=== PATIENT | female | born 1955 | race Caucasian/White ===

== ENCOUNTER 2016-07-12 18:40 | Emergency (ER) | payer OTHER ==
[~2016-07-12] VITALS: Ht 162.6 cm; Wt 95.3 kg
[~2016-07-12 18:40] MED LIST: ASPIR 8181 MG PO; CYMBALTA 30 MG30 MG PO; CYMBALTA60 MG PO; EPIPEN 2-PAK1 MG/ML IM; FUROSEMIDE40 MG PO; GEMFIBROZIL600 MG PO; GLIMEPIRIDE4 MG PO; HYDROCODONE/ACE1 TA1 PO; HYDROXYZINE50 MG PO; LOSARTAN POTASS50 MG PO; LYRICA150 MG PO; METFORMIN1000 MG PO; NOVAPLUS V0.09 MG/Ac INH; PERCOCET 5-3251 EACH PO; PREDNISONE50 MG PO; SIMVASTATIN20 MG PO; TESSALON PERLE100 MG PO; VICTOZA6 MG/ML SC; ZITHROMAX Z-PA250 M1 PO
--- NOTE | 2016-07-12 20:00 | ED SKIN/ALLERGY COMPLAINT ---
History of Present Illness General Chief Complaint: Laceration Procedure Stated Complaint: LEFT THUMB LAC Source: patient Exam Limitations: no limitations Allergies Coded Allergies: lisinopril (ANAPHYLAXIS 07/12/16) Reconcile Medications Amlodipine Besylate 10 MG TABLET 1 TAB PO DAILY BP (Reported) Ascorbic Acid (Vitamin C) (Unknown Strength) TABLET (Unknown Dose) PO DAILY SUPPLEMENT (Reported) Aspirin (Ecotrin*) 81 MG TABLET.DR 1 TAB PO DAILY HEART/BLOOD (Reported) Cholecalciferol (Vitamin D3) (Vitamin D) (Unknown Strength) TABLET (Unknown Dose) PO DAILY SUPPLEMENT (Reported) Difluprednate (Durezol) 0.05 % DROPS 1 GTT OS DAILY LEFT EYE (Reported) Duloxetine HCl 60 MG CAPSULE.DR 1 CAP PO [facility] MENTAL HEALTH (Reported) Duloxetine HCl 30 MG CAPSULE.DR 1 CAP PO [facility] MENTAL HEALTH (Reported) Fenofibric Acid (Trilipix) 135 MG CAPSULE.DR 1 CAP PO DAILY TRIGLYCERIDES/ CHOLESTEROL (Reported) Hydrochlorothiazide 25 MG TABLET 1 TAB PO DAILY BP (Reported) Insulin Aspart, Recombinant (Novolog Flexpen) 100 UNIT/ML INSULN.PEN DM ( Reported) Insulin Detemir (Levemir) 100 UNIT/ML VIAL 50-60 UNITS SC QPM DM (Reported) Losartan Potassium 100 MG TABLET 1 TAB PO DAILY BP (Reported) Metformin HCl 500 MG TABLET 1 TAB PO BID DM (Reported) Multivit/Iron/FA/K/Herb No.244 (Alive Women's Energy Mv Tablet) 18 MG IRON-400 MCG-80 MCG TABLET 2 TAB PO DAILY SUPPLEMENT (Reported) Nepafenac (Ilevro) 0.3 % DROPS.SUSP 1 DROP OS BID LEFT EYE (Reported) [place]-3 Acid Ethyl Esters 1 GRAM CAPSULE 2 CAP PO BID CHOLESTEROL (Reported) Polymyxin B Sulf/Trimethoprim (Polymyxin B-Tmp Eye Drops) 10,000 UNIT-1 MG/ML DROPS 1 GTT OS BID LEFT EYE (Reported) Pregabalin (Lyrica) 150 MG CAPSULE 1 CAP PO BID NERVE PAIN (Reported) Rosuvastatin Calcium (Crestor) 10 MG TABLET 1 TAB PO DAILY CHOLESTEROL ( Reported) Triage Note: LACERATION LEFT INNER THUMB UNK LAST TETNUS Triage Nurses Notes Reviewed? yes HPI: This patient is a 60-year-old female who presented to the emergency department with her son for evaluation of a laceration to her left thumb. The patient reported that she was trying to cut a daughter squash and the knife slipped. She reported that she is having 7 out of 10 pain in her thumb. She denied any decreased movement in her thumb. She reported some tingling, but no numbness. The patient denied any fevers, chills, or any other associated symptoms. She is unsure of her last tetanus immunization (LEO KEATING PA-C) Vital Signs & Intake/Output Vital Signs & Intake/Output Vital Signs Date Time Temp Pulse Resp B/P Pulse O2 O2 Flow FiO2 Ox Delivery Rate 07/13 2047 96.8 80 18 140/85 97 Room Air 07/12 2019 100 Room Air 07/12 1852 97.0 78 20 140/84 97 Room Air ED Intake and Output 07/13 0000 07/12 1200 Intake Total Output Total Balance Patient 210 lb Weight Past History Travel History Traveled to [place] past 21 day No Medical History Any Pertinent Medical History? see below for history Neurological: peripheral neuropathy EENT: NONE Cardiovascular: hypertension Respiratory: NONE Gastrointestinal: NONE Hepatic: NONE Renal: NONE Musculoskeletal: NONE Psychiatric: depression Endocrine: diabetes Surgical History Surgical History: non-contributory, N Psychosocial History Who do you live with Patient/Self Services at Home None What is your primary language Gambian Family History Hx Contributory? No (LEO KEATING PA-C) Review of Systems Review of Systems Constitutional: Reports: no symptoms. EENTM: Reports: no symptoms. Respiratory: Reports: no symptoms. Cardiovascular: Reports: no symptoms. GI: Reports: no symptoms. Musculoskeletal: Reports: no symptoms. Skin: Reports: see HPI. Neurological/Psychological: Reports: see HPI. All Other Systems: Reviewed and Negative (LEO KEATING PA-C) Physical Exam Physical Exam General Appearance: well developed/nourished, no apparent distress, alert, awake Comments: Well-developed well-nourished person in no acute distress HEENT: Head normocephalic, moist mucous membranes Neck: Supple, no lymphadenopathy Back: Normal gait Respiratory: No respiratory distress. Speaking in full sentences Extremities: No edema, full range of motion Neuro: Alert and oriented x3 Psych: Mood affect normal, normal memory normal judgment. Skin: Warm and dry, no rash on exposed skin. Approximately 1.5 cm in length, linear, subcutaneous laceration to the palmar aspect of the left first digit with no active bleeding, surrounding erythema or edema, and nontender to palpation. No purulent drainage from the wound site. No tendon involvement or injury. No foreign body in the wound. (LEO KEATING PA-C) Progress Differential Diagnosis: abscess/cellulitis, skin laceration, skin tear, skin abrasion, skin avulsion Plan of Care: PATIENT IS A 60 YEAR OLD FEMALE WHO PRESENTED FOR A LEFT THUMB LACERATION. WOUND REPAIRED WITH 4, 4-0 SUTURES. TETANUS IMMUNIZATION ADMINISTERED. STABLE FOR DISCHARGE. (LEO KEATING PA-C) Departure Departure Disposition: HOME OR SELF CARE Condition: Stable Clinical Impression Primary Impression: Laceration Referrals: FERNANDA IBARRA (PCP/Family) Additional Instructions: Keep the wound site clean and dry. Use the splint provided to here in the emergency department to prevent any bending of your thumb which could hold sutures. You may apply bacitracin to the wound once a day. Please return to the emergency department in 7-10 days for wound check and suture removal. Return sooner for any worsening symptoms, spreading redness around the wound site, pus drainage from the wound site, or for any other concerns. Departure Forms: Customer Survey General Discharge Information (LEO KEATING PA-C) PA/AGING DEPARTMENT SUPERVISOR Co-Sign Statement Statement: ED Attending supervision documentation- [X] I saw and evaluated the patient. I have also reviewed all the pertinent lab results and diagnostic results. I agree with the findings and the plan of care as documented in the PA's/AGING DEPARTMENT SUPERVISOR's documentation. [X] I have reviewed the ED Record and agree with the PA's/AGING DEPARTMENT SUPERVISOR's documentation. [] Additions or exceptions (if any) to the PAs/AGING DEPARTMENT SUPERVISOR's note and plan are summarized below: [] (WANDA GODOY,VENKAT Sanchez) Procedures Laceration/Wound Repair Laceration/Wound Repair: Wound Location: upper extremity (left thumb) Wound's Depth, Shape: linear, subcutaneous Wound Length (cm): 1.5 Wound Explored: irrigated extensively Irrigated w/ Saline (ccs): 500 Betadine Prep? Yes Anesthesia: 1% lidocaine Volume Anesthetic (ccs): 2 Wound Repaired With: sutures Suture Size/Type: 4:0 Number of Sutures: 4 Layer Closure? No Sterile Dressing Applied: Yes Splint Applied? Yes By Who? by me Type of Splint Applied: thumb splint Sling Applied? No Tetanus Status: not up to date Progress: [employer] student assisting in the closure of this laceration. Patient tolerated procedure well. (ZURI LAMBERT,LEO)
[2016-07-12] MEDS ORDERED: OMEGA-3 ACID ETH1 GM PO (20:02)
[2016-07-12] MEDS ORDERED: DUREZOL5 ML OS (20:04)
[2016-07-12] MEDS ORDERED: ILEVRO1.7 ML OS (20:04)
[2016-07-12] MEDS ORDERED: POLYMYXIN B-TMP10 ML OS (20:05)
[2016-07-12] MEDS ORDERED: DULOXETINE HCL60 MG PO (20:06)
[2016-07-12] MEDS ORDERED: ASPIRIN EC81 M1 PO (20:06)
[2016-07-12] MEDS ORDERED: DULOXETINE HCL30 MG PO (20:07)
[2016-07-12] MEDS ORDERED: CRESTOR10 M1 PO (20:07)
[2016-07-12] MEDS ORDERED: TRILIPIX135 M1 PO (20:07)
[2016-07-12] MEDS ORDERED: AMLODIPINE BESY10 M1 PO (20:08)
[2016-07-12] MEDS ORDERED: METFORMIN HCL500 M3 PO (20:08)
[2016-07-12] MEDS ORDERED: LOSARTAN POTAS100 M1 PO (20:09)
[2016-07-12] MEDS ORDERED: HYDROCHLOROTHIA25 M1 PO (20:09)
[2016-07-12] MEDS ORDERED: LYRICA150 M1 PO (20:09)
[2016-07-12] MEDS ORDERED: LEVEMIR100 UNIT/1 SC (20:10)
[2016-07-12] MEDS ORDERED: NOVOLOG FL100 UNIT/1 SC (20:10)
[2016-07-12] MEDS ORDERED: ALIVE WOMEN'S1 EAC1 PO (20:12)
[2016-07-12] MEDS ORDERED: VITAMIN D2000 UNI1 PO (20:13)
[2016-07-12] MEDS ORDERED: VITAMIN C500 M8 PO (20:13)
[2016-07-12 20:48] VITALS: BP 140/85
== END 2016-07-12 20:49 ==
LOC: ERH 18:40
DX: S61.012A Laceration without foreign body of left thumb without damage to nail, initial encounter (principal); W26.0XXA Contact with knife, initial encounter; Y93.G1 Activity, food preparation and clean up; Y92.9 Unspecified place or not applicable
CPT/HCPCS: 90471; 90714

== ENCOUNTER 2016-07-21 09:44 | Emergency (ER) | payer OTHER ==
[~2016-07-21] VITALS: Ht 160 cm; Wt 104.3 kg
[~2016-07-21 09:44] MED LIST changes: +ALIVE WOMEN'S1 EAC1 PO; +AMLODIPINE BESY10 M1 PO; +ASPIRIN EC81 M1 PO; +CRESTOR10 M1 PO; +DULOXETINE HCL30 MG PO; +DULOXETINE HCL60 MG PO; +DUREZOL5 ML OS; +HYDROCHLOROTHIA25 M1 PO; +ILEVRO1.7 ML OS; +LEVEMIR100 UNIT/1 SC; +LOSARTAN POTAS100 M1 PO; +LYRICA150 M1 PO; +METFORMIN HCL500 M3 PO; +NOVOLOG FL100 UNIT/1 SC; +OMEGA-3 ACID ETH1 GM PO; +POLYMYXIN B-TMP10 ML OS; +TRILIPIX135 M1 PO; +VITAMIN C500 M8 PO; +VITAMIN D2000 UNI1 PO
[2016-07-21 09:48] VITALS: BP 162/80
--- NOTE | 2016-07-21 10:01 | ED GENERAL ADULT ---
History of Present Illness General Chief Complaint: General Adult Stated Complaint: SUTURE REMOVAL Source: patient, family Exam Limitations: no limitations Vital Signs & Intake/Output Vital Signs & Intake/Output Vital Signs Date Time Temp Pulse Resp B/P Pulse O2 O2 Flow FiO2 Ox Delivery Rate 07/21 0948 96.2 81 18 162/80 98 Room Air Allergies Coded Allergies: lisinopril (ANAPHYLAXIS 07/12/16) Reconcile Medications Amlodipine Besylate 10 MG TABLET 1 TAB PO DAILY BP (Reported) Ascorbic Acid (Vitamin C) (Unknown Strength) TABLET (Unknown Dose) PO DAILY SUPPLEMENT (Reported) Aspirin (Ecotrin*) 81 MG TABLET.DR 1 TAB PO DAILY HEART/BLOOD (Reported) Cholecalciferol (Vitamin D3) (Vitamin D) (Unknown Strength) TABLET (Unknown Dose) PO DAILY SUPPLEMENT (Reported) Difluprednate (Durezol) 0.05 % DROPS 1 GTT OS DAILY LEFT EYE (Reported) Duloxetine HCl 60 MG CAPSULE.DR 1 CAP PO [facility] MENTAL HEALTH (Reported) Duloxetine HCl 30 MG CAPSULE.DR 1 CAP PO [facility] MENTAL HE[facility] (Reported) Fenofibric Acid (Trilipix) 135 MG CAPSULE.DR 1 CAP PO DAILY TRIGLYCERIDES/ CHOLESTEROL (Reported) Hydrochlorothiazide 25 MG TABLET 1 TAB PO DAILY BP (Reported) Insulin Aspart, Recombinant (Novolog Flexpen) 100 UNIT/ML INSULN.PEN DM ( Reported) Insulin Detemir (Levemir) 100 UNIT/ML VIAL 50-60 UNITS SC QPM DM (Reported) Losartan Potassium 100 MG TABLET 1 TAB PO DAILY BP (Reported) Metformin HCl 500 MG TABLET 1 TAB PO BID DM (Reported) Multivit/Iron/FA/K/Herb No.244 (Alive Women's Energy Mv Tablet) 18 MG IRON-400 MCG-80 MCG TABLET 2 TAB PO DAILY SUPPLEMENT (Reported) Nepafenac (Ilevro) 0.3 % DROPS.SUSP 1 DROP OS BID LEFT EYE (Reported) [place]-3 Acid Ethyl Esters 1 GRAM CAPSULE 2 CAP PO BID CHOLESTEROL (Reported) Polymyxin B Sulf/Trimethoprim (Polymyxin B-Tmp Eye Drops) 10,000 UNIT-1 MG/ML DROPS 1 GTT OS BID LEFT EYE (Reported) Pregabalin (Lyrica) 150 MG CAPSULE 1 CAP PO BID NERVE PAIN (Reported) Rosuvastatin Calcium (Crestor) 10 MG TABLET 1 TAB PO DAILY CHOLESTEROL ( Reported) Triage Note: 60 TO L THUMB. STATES AREA LOOKS RED. DRESSING IN PLACE. ALSO REQUESTING EVAL OF R HAND/R THUMB. STATES THUMB HAS BEEN "LOCKING" AND SHE IS UNABLE TO "OPEN A CAN". DENIES INJURIES OR TRAUMA Triage Nurses Notes Reviewed? yes Onset: Gradual Duration: week(s): (1) Timing: no prior history Injury Environment: home Severity: mild Severity Numbers: 5 Modifying Factors: Improves With: immobilization. HPI: Patient is a 60-year-old female here for suture removal of the left thumb MP she was seen and evaluated here 9 days ago for a laceration to the left thumb. Here to have them taken out. Denies any increased pain over the left thumb. She also reports that she developed some clicking in the right thumb and would like to be evaluated for that as well. Pain is mild worse with movement. Denies taking anything help with symptoms. He denies any increased redness pain or discharge over the laceration site. No fevers or chills. (DORIS RUVALCABA) Past History Travel History Traveled to [place] past 21 day No Medical History Any Pertinent Medical History? see below for history Neurological: peripheral neuropathy EENT: NONE Cardiovascular: hypertension Respiratory: NONE Gastrointestinal: NONE Hepatic: NONE Renal: NONE Musculoskeletal: NONE Psychiatric: depression Endocrine: diabetes Tetanus Vaccine: 07/12/16 Surgical History Surgical History: non-contributory, N Psychosocial History Who do you live with Patient/Self Services at Home None What is your primary language [place]ese Tobacco Use: Never used Family History Hx Contributory? No (DORIS RUVALCABA) Review of Systems Review of Systems Constitutional: Reports: no symptoms. Comments Review of systems: See HPI, All other systems negative. Constitutional, no chills fever or weight loss HEENT: No visual changes no sore throat no congestion Cardiovascular: No chest pain ,palpitation Skin, no jaundice Respiratory: No dyspnea cough sputum or hemoptysis GI: No nausea no vomiting Muscle skeletal: no back pain, no neck pain, Neurologic: No numbness no confusion Psych: No stress anxiety or depression,. Heme/endocrine: No bruising no bleeding Immunology: No splenectomy or history of AIDS (DORIS RUVALCABA) Physical Exam Physical Exam General Appearance: well developed/nourished, no apparent distress, alert, awake , comfortable Comments: Well-developed well-nourished person in no acute distress HEENT: Pupils equally round and reactive to light and accommodation. Nose is atraumatic. Neck: Normal inspection Back: Nontender Cardiovascular: Regular rate and rhythms no murmurs rubs or gallops, normal JVP Respiratory: Chest nontender. No respiratory distress.breath sounds clear to auscultation bilaterally Extremity: No edema, clicking sensation with the right first PIP joint. Mildly tender to palpation. No erythema or edema. Full range of motion of all her digits without difficulty or pain. Capillary refill is intact in upper extremities. Radial pulses are 2+ bilaterally. Neuro: Alert oriented x3, motor sensory normal Skin: Well-healing laceration noted at the base of the left thumb, no surrounding erythema or edema. There is no scabbing formation. [address] No appreciable rash on exposed skin, skin is warm and dry. Psych: Mood and affect is normal, memory and judgment is normal. Core Measures ACS in differential dx? No CVA/TIA Diagnosis: No Severe Sepsis Present: No Septic Shock Present: No (ORESTES MCCORMACK,DORIS) Progress Differential Diagnoses I considered the following diagnoses in my evaluation of the patient: Suture removal, cellulitis, wound check, finger contusion, double-jointed, Plan of Care: Informed of negative x-ray. She'll follow up with orthopedics for further evaluation if symptoms persist as x-ray can only see bones. This was explained to the patient. She'll return in 3 days for suture removal as the wound does not appear to be ready for suture removal. One suture was removed, slight evisceration of laceration. Diagnostic Imaging: Viewed by Me: Radiology Read. Discussed w/RAD: Radiology Read. Radiology Impression: PATIENT: BRENDA CLARK PRESENT AGE: 60 PATIENT ACCOUNT NO: [id number] : 54 LOCATION: [facility] ORDERING PHYSICIAN: DORIS MCCORMACK SERVICE DATE: 07/21/16 EXAM TYPE: RAD - XRY-FINGERS, RIGHT EXAMINATION: XR FINGER, RIGHT CLINICAL INFORMATION: Pain. Evaluate for fracture. COMPARISON: No relevant prior imaging available. TECHNIQUE: An AP view of the right hand was performed. 2 additional views of the right first digit were obtained. FINDINGS: There is no acute fracture or dislocation. There is mild degenerative joint space narrowing of the proximal and distal interphalangeal joints. Mild degenerative spurring at the base of the second metacarpal. Proximal and distal carpal rows are intact. Soft tissues are unremarkable. Neutral ulnar variance. IMPRESSION: No acute fracture or dislocation. Mild degenerative changes. Initial ED EKG: none (DORIS RUVALCABA) Departure Departure Time of Disposition: 1000 Disposition: HOME OR SELF CARE Condition: Stable Clinical Impression Primary Impression: Visit for suture removal Secondary Impressions: Finger sprain Qualifiers: Encounter type: initial encounter Finger: thumb Sprain of finger site: unspecified site Laterality: right Qualified Code: S63.601A - Unspecified sprain of right thumb, initial encounter Referrals: FERNANDA IBARRA (PCP/Family) GRACIE GODOY,SHAKEEL Moore Additional Instructions: Follow-up with your primary care physician call to make an appointment. Keep wound clean and dry. Return on or Thursday for suture removal. Do not apply any bacitracin. Return for worsening symptoms or concerns. Also follow- up with orthopedics if he thumb continues to bother you to follow up. wear splint as needed. Departure Forms: Customer Survey General Discharge Information (DORIS RUVALCABA) PA/RESIDENTIAL PROGRAM WORKER Co-Sign Statement Statement: ED Attending supervision documentation- [X] I saw and evaluated the patient. I have also reviewed all the pertinent lab results and diagnostic results. I agree with the findings and the plan of care as documented in the PA's/RESIDENTIAL PROGRAM WORKER's documentation. [] I have reviewed the ED Record and agree with the PA's/RESIDENTIAL PROGRAM WORKER's documentation. [] Additions or exceptions (if any) to the PAs/RESIDENTIAL PROGRAM WORKER's note and plan are summarized below: [] (CHANTELLE WHATLEY DO) Procedures Splinting Location: right thumb Manual Alignment Performed: No Pre-Made Type: metal Splint: thumb Splint Applied By: splint applied by me Pre-Proc Neuro Vasc Exam: normal Post-Proc Neuro Vasc Exam: normal Progress: Tolerated procedure well. (DORIS RUVALCABA) Critical Care Note Critical Care Note Critical Care Time: non-applicable (DORIS RUVALCABA)
--- NOTE | 2016-07-21 10:43 | RADIOLOGY REPORT ---
EXAMINATION: XR FINGER, RIGHT CLINICAL INFORMATION: Pain. Evaluate for fracture. COMPARISON: No relevant prior imaging available. TECHNIQUE: An AP view of the right hand was performed. 2 additional views of the right first digit were obtained. FINDINGS: There is no acute fracture or dislocation. There is mild degenerative joint space narrowing of the proximal and distal interphalangeal joints. Mild degenerative spurring at the base of the second metacarpal. Proximal and distal carpal rows are intact. Soft tissues are unremarkable. Neutral ulnar variance. IMPRESSION: No acute fracture or dislocation. Mild degenerative changes.
== END 2016-07-21 11:18 ==
LOC: ERH 09:44
DX: S63.601A Unspecified sprain of right thumb, initial encounter (principal); S61.012D Laceration without foreign body of left thumb without damage to nail, subsequent encounter; X58.XXXA Exposure to other specified factors, initial encounter; Y93.9 Activity, unspecified; Y92.9 Unspecified place or not applicable
CPT/HCPCS: 73140-RT

== ENCOUNTER 2016-08-25 19:33 | Emergency (ER) | payer OTHER ==
[~2016-08-25] VITALS: Ht 160 cm; Wt 104.3 kg
[2016-08-25 19:54] VITALS: BP 139/79
--- NOTE | 2016-08-25 20:44 | ED HAND/WRIST INJURY COMPLAINT ---
History of Present Illness General Chief Complaint: Hand or Wrist Injury Stated Complaint: HAND INFECTION Source: patient, old records Exam Limitations: no limitations Vital Signs & Intake/Output Vital Signs & Intake/Output Vital Signs Date Time Temp Pulse Resp B/P Pulse O2 O2 Flow FiO2 Ox Delivery Rate 08/25 1953 97.1 75 20 139/79 95 Room Air ED Intake and Output 08/26 0000 08/25 1200 Intake Total Output Total Balance Patient 230 lb Weight Allergies Coded Allergies: lisinopril (ANAPHYLAXIS 07/12/16) Reconcile Medications Amlodipine Besylate 10 MG TABLET 1 TAB PO DAILY BP (Reported) Ascorbic Acid (Vitamin C) (Unknown Strength) TABLET (Unknown Dose) PO DAILY SUPPLEMENT (Reported) Aspirin (Ecotrin*) 81 MG TABLET.DR 1 TAB PO DAILY HEART/BLOOD (Reported) Cephalexin (Keflex) 250 MG CAPSULE 1 CAP PO TID CELLULTIIS Cholecalciferol (Vitamin D3) (Vitamin D) (Unknown Strength) TABLET (Unknown Dose) PO DAILY SUPPLEMENT (Reported) Difluprednate (Durezol) 0.05 % DROPS 1 GTT OS DAILY LEFT EYE (Reported) Duloxetine HCl 60 MG CAPSULE.DR 1 CAP PO [facility] MENTAL HEALTH (Reported) Duloxetine HCl 30 MG CAPSULE.DR 1 CAP PO [facility] MENTAL HEALTH (Reported) Fenofibric Acid (Trilipix) 135 MG CAPSULE.DR 1 CAP PO DAILY TRIGLYCERIDES/ CHOLESTEROL (Reported) Hydrochlorothiazide 25 MG TABLET 1 TAB PO DAILY BP (Reported) Insulin Aspart, Recombinant (Novolog Flexpen) 100 UNIT/ML INSULN.PEN DM ( Reported) Insulin Detemir (Levemir) 100 UNIT/ML VIAL 50-60 UNITS SC QPM DM (Reported) Losartan Potassium 100 MG TABLET 1 TAB PO DAILY BP (Reported) Metformin HCl 500 MG TABLET 1 TAB PO BID DM (Reported) Multivit/Iron/FA/K/Herb No.244 (Alive Women's Energy Mv Tablet) 18 MG IRON-400 MCG-80 MCG TABLET 2 TAB PO DAILY SUPPLEMENT (Reported) Nepafenac (Ilevro) 0.3 % DROPS.SUSP 1 DROP OS BID LEFT EYE (Reported) [place]-3 Acid Ethyl Esters 1 GRAM CAPSULE 2 CAP PO BID CHOLESTEROL (Reported) Polymyxin B Sulf/Trimethoprim (Polymyxin B-Tmp Eye Drops) 10,000 UNIT-1 MG/ML DROPS 1 GTT OS BID LEFT EYE (Reported) Pregabalin (Lyrica) 150 MG CAPSULE 1 CAP PO BID NERVE PAIN (Reported) Rosuvastatin Calcium (Crestor) 10 MG TABLET 1 TAB PO DAILY CHOLESTEROL ( Reported) Triage Note: PT TO ED C/O ? INFECTION TO RT THUMB. STATES THUMB WAS INJURED A MONTH AGO, NO FRACTURE. REDNESS STARTED OVER THE WEEKEND Triage Nurses Notes Reviewed? yes HPI: Patient presents for an infection to her right thumb. Patient states that she was seen in the emergency department for a white spot under her right nail in the past and was instructed to follow-up with orthopedics. Patient states at the time she had a clicking in her right thumb and for her right thumb was catching. Patient was diagnosed with a trigger finger. Patient states a white spot has now spread to her entire nail and now her nail bed is starting to turn red. Patient is diabetic so she became concerned so comes in for evaluation. Patient states she has a mild throbbing pain that she rates as 3 out of 10. It is constant. There are no aggravating or mitigating factors. There is no radiation. There are no fevers or chills. Past History Travel History Traveled to [place] past 21 day No Medical History Any Pertinent Medical History? see below for history Neurological: peripheral neuropathy EENT: NONE Cardiovascular: hypertension Respiratory: NONE Gastrointestinal: NONE Hepatic: NONE Renal: NONE Musculoskeletal: NONE Psychiatric: depression Endocrine: diabetes Tetanus Vaccine: 07/12/16 Surgical History Surgical History: non-contributory, N Psychosocial History Who do you live with Patient/Self Services at Home None What is your primary language Latvian Tobacco Use: Never used ETOH Use: denies use Illicit Drug Use: denies illicit drug use Family History Hx Contributory? No Review of Systems Review of Systems Constitutional: Reports: no symptoms. Respiratory: Reports: no symptoms. Cardiovascular: Reports: no symptoms. GI: Reports: no symptoms. Musculoskeletal: Reports: see HPI. Skin: Reports: see HPI. Neurological/Psychological: Reports: no symptoms. Immunologic/Allergic: Reports: no symptoms. Physical Exam Physical Exam General Appearance: well developed/nourished, alert, awake, mild distress Eyes: Bilateral: PERRL, EOMI. Neck: normal inspection, supple, full range of motion Cardiovascular/Respiratory: normal breath sounds, normal peripheral pulses, regular rate/rhythm, no respiratory distress Hand Left: normal inspection, normal range of motion Hand Right: WHITISH DISCOLORATION TO HER RIGHT THUMB NAIL AND ERYTHEMA TO THE NAILBED. nO EVIDENCE OF PARONYCHIA OR FELL ON. Neurologic/Tendon: normal sensation, normal motor functions, normal tendon functions Progress Differential Diagnosis: cellulitis Plan of Care: Antibiotics and follow-up Departure Departure Disposition: HOME OR SELF CARE Condition: Stable Clinical Impression Primary Impression: Finger infection Referrals: FERNANDA IBARRA (PCP/Family) JONY GODOY,GUILLERMO Additional Instructions: TAKE KEFLEX DIRECTED FOLLOW UP WITH DR. BORGES RETURN FOR ANY CONCERNS Departure Forms: Customer Survey General Discharge Information Prescriptions: Current Visit Scripts Cephalexin (Keflex) 1 CAP PO TID #21 CAP
[2016-08-25] MEDS ORDERED: KEFLEX250 M1 PO (21:04)
== END 2016-08-25 21:13 ==
LOC: ERH 19:33
DX: L08.9 Local infection of the skin and subcutaneous tissue, unspecified (principal)

== ENCOUNTER 2017-11-14 22:56 | Inpatient (IN) | payer OTHER ==
[~2017-11-14] VITALS: Ht 160 cm; Wt 118.1 kg
[~2017-11-14 22:56] MED LIST changes: +AUGMENTIN 875-1 EACH PO; +CINNAMON500 M1 PO; +CRANBERRY425 MG PO; +KEFLEX250 M1 PO; +MELATONIN5 M7 PO; +MELOXICAM15 M1 PO; +ZOFRAN ODT4 M1 SL
--- NOTE | 2017-11-14 23:40 | ED CARDIAC/CP/PALPITATIONS ---
History of Present Illness General Chief Complaint: Chest Pain Stated Complaint: CHEST PAIN,SOB,HIGH BS Source: patient, family, old records Exam Limitations: no limitations Vital Signs & Intake/Output Vital Signs & Intake/Output Vital Signs Date Time Temp Pulse Resp B/P B/P Pulse O2 O2 Flow FiO2 Mean Ox Delivery Rate 11/15 0153 98.2 65 20 131/59 98 Room Air 11/15 0051 98.0 65 20 181/79 98 Room Air 11/14 2332 99 Room Air 11/14 2331 98.0 80 20 202/85 99 Room Air 11/14 2318 98.0 67 18 210/126 97 Room Air ED Intake and Output 11/15 0000 11/14 1200 Intake Total Output Total Balance Patient 245 lb Weight Weight Reported by Patient Measurement Method Allergies Coded Allergies: lisinopril (ANAPHYLAXIS 07/12/16) Reconcile Medications Amlodipine Besylate 10 MG TABLET 1 TAB PO DAILY BP (Reported) Amoxicillin/Potassium Clav (Augmentin 875-125 Tablet) 875 MG-125 MG TABLET 1 TAB PO BID cellulitis Aspirin (Ecotrin*) 81 MG TABLET.DR 1 TAB PO DAILY HEART/BLOOD (Reported) Cinnamon Bark (Cinnamon) (Unknown Strength) CAPSULE 2 CAP PO DAILY SUPPLEMENT (Reported) Cranberry Extract (Cranberry) 425 MG CAPSULE 2 CAP PO DAILY SUPPLEMENT ( Reported) Duloxetine HCl 60 MG CAPSULE.DR 1 CAP PO [facility] (Reported) Fenofibric Acid (Trilipix) 135 MG CAPSULE.DR 1 CAP PO DAILY TRIGLYCERIDES/ CHOLESTEROL (Reported) Hydrochlorothiazide 25 MG TABLET 1 TAB PO DAILY BP (Reported) Insulin Aspart, Recombinant (Novolog Flexpen) 100 UNIT/ML INSULN.PEN DM ( Reported) Insulin Detemir (Levemir) 100 UNIT/ML VIAL 25-30 UNITS SC BID DM (Reported) Losartan Potassium 100 MG TABLET 1 TAB PO DAILY BP (Reported) Melatonin 5 MG TABLET 1 TAB PO DAILY SUPPLEMENT (Reported) Meloxicam 15 MG TABLET 1 TAB PO DAILY PAIN (Reported) Multivit/Iron/FA/K/Herb No.244 ([employer]v Tablet) 18 MG IRON-400 MCG-80 MCG TABLET 1 TAB PO DAILY SUPPLEMENT (Reported) [place]-3 Acid Ethyl Esters 1 GRAM CAPSULE 2 CAP PO BID CHOLESTEROL (Reported) Ondansetron (Zofran Odt) 4 MG TAB.RAPDIS 1 TAB SL TID PRN nausea Oxycodone HCl/Acetaminophen (Percocet 5-325 MG Tablet) 5 MG-325 MG TABLET 1 TAB PO BID pain Pregabalin (Lyrica) 150 MG CAPSULE 1 CAP PO BID NERVE PAIN (Reported) Rosuvastatin Calcium (Crestor) 10 MG TABLET 1 TAB PO DAILY CHOLESTEROL ( Reported) Triage Note: PT FROM HOME C/O CHEST PRESSURE THAT WAS ONSET AFTER A NEAR SYNCOPAL EPISODE 20 MINS PRIOR TO ARRIVAL. PT STATES SHE WAS WALKING, BECAME VERY LIGHTHEADED AND WAS CAUGHT BY SON. PT DENIES LOC OR HEADSTRIKE. PT STATES CHEST PRESSURE THAT IS CONSTANT, NON RADIATING. DENIES JAW OR BACK PAIN, ARM NUMBNESS/TINGLING. PT STATES NAUSEA, -VOMITING. PT HAS BEEN AT A P[employer] ALL DAY EATING, AND DRINKING ALCOHOL. PT STATES BSG WAS HIGH WAS CHECKED. BSG IN TRIAGE 343. Triage Nurses Notes Reviewed? yes HPI: Patient was at a [employer] this evening when she had a sudden onset of room spinning dizziness. Patient then developed an discomfort in her epigastric area. Patient then developed a pressure sensation on the left anterior portion of her chest. The room spinning dizziness has resolved however the epigastric and chest discomfort have continued. There is no radiation. There are no aggravating or mitigating factors. She rates them at a 6 out of 10. She denies any shortness of breath. There is no nausea or vomiting. Patient took 2 aspirin and then comes to the emergency department for evaluation. Past History Travel History Traveled to [place] past 21 day No Medical History Any Pertinent Medical History? see below for history Neurological: peripheral neuropathy EENT: NONE Cardiovascular: hypertension Respiratory: NONE Gastrointestinal: NONE Hepatic: NONE Renal: NONE Musculoskeletal: NONE Psychiatric: depression Endocrine: diabetes Tetanus Vaccine: 07/12/16 Surgical History Surgical History: non-contributory, N Psychosocial History Who do you live with Patient/Self Services at Home None What is your primary language Turkish Tobacco Use: Never used ETOH Use: denies use Illicit Drug Use: denies illicit drug use Family History Hx Contributory? No Review of Systems Review of Systems Constitutional: Reports: no symptoms. EENTM: Reports: no symptoms. Respiratory: Reports: no symptoms. Cardiovascular: Reports: see HPI, chest pain. GI: Reports: see HPI, abdominal pain. Musculoskeletal: Reports: no symptoms. Skin: Reports: no symptoms. Neurological/Psychological: Reports: see HPI. Hematologic/Endocrine: Reports: no symptoms. Immunologic/Allergic: Reports: no symptoms. Physical Exam Physical Exam General Appearance: well developed/nourished, alert, awake, mild distress Head: atraumatic, normal appearance Eyes: Bilateral: PERRL, EOMI. Ears, Nose, Throat: normal pharynx, normal ENT inspection, hearing grossly normal Neck: normal inspection, supple, full range of motion Respiratory: normal breath sounds, chest non-tender, no respiratory distress, lungs clear Cardiovascular: regular rate/rhythm, normal peripheral pulses Gastrointestinal: normal bowel sounds, soft, non-tender Back: normal inspection, normal range of motion Extremities: normal inspection, normal capillary refill, normal range of motion, no edema Neurologic/Psych: no motor/sensory deficits, awake, alert, oriented x 3, normal gait, normal mood/affect Skin: intact, normal color, warm/dry Lymphatic: no anterior cervical papito Core Measures ACS in differential dx? Yes No ASA d/t TOOK [employer] CVA/TIA Diagnosis No Sepsis Present: No Sepsis Focused Exam Completed? No Progress Differential Diagnosis: AMI, cholecystitis, musculoskeletal pain, myocarditis, pancreatitis, pericarditis, pneumonia, pneumothorax, PUD/GERD Plan of Care: Orders Procedure Date/time Status MIXED VENOUS BLOOD GAS (GEN) 11/15 2339 Active Telemetry/Sort Line 11/14 234 Active URINALYSIS 11/14 234 Complete TROPONIN LEVEL 11/14 234 Active LIPASE 11/14 2340 Active COMPREHENSIVE METABOLIC PANEL 11/14 2340 Active CBC WITHOUT DIFFERENTIAL 11/15 2339 Complete AMYLASE 11/14 234 Active ACETONE 11/14 234 Active EKG 11/14 2257 Active Laboratory Tests 11/15/17 0056: Anion Gap 8, Estimated GFR > 60, BUN/Creatinine Ratio 22.5, Glucose 290 H, Calcium 8.0 L, Total Bilirubin 0.3, AST 35, ALT 52, Alkaline Phosphatase 155 H , Troponin I < 0.01, Total Protein 5.5 L, Albumin 2.9 L, Globulin 2.6, Albumin /Globulin Ratio 1.1, Amylase 50, Lipase 175, Acetone Level Pending 11/15/17 0020: Urine Color YEL, Urine Clarity HAZY H, Urine pH 6.0, Ur Specific [place] 1.010, Urine Protein 100 H, Urine Ketones NEG, Urine Nitrite NEG, Urine Bilirubin NEG, Urine Urobilinogen 0.2, Ur Leukocyte Esterase NEG, Ur Microscopic SEDIMENT EXAMINED, Urine RBC 1-3, Ur Epithelial Cells RARE, Urine Bacteria FEW H, Urine Hemoglobin TRACE-INTACT, Urine Glucose >=1000 H 11/15/17 0005: CBC w Diff NO MAN DIFF REQ, RBC 4.63, MCV 92.7, MCH 31.9 H, MCHC 34.4, RDW 13.6 , MPV 9.9, Gran % 56.1, Lymphocytes % 32.4, Monocytes % 8.2, Eosinophils % 2.7, Basophils % 0.6, Absolute Granulocytes 4.8, Absolute Lymphocytes 2.8, Absolute Monocytes 0.7 H, Absolute Eosinophils 0.2, Absolute Basophils 0.1 Diagnostic Imaging: Viewed by Me: Radiology Read. Discussed w/RAD: Radiology Read. CXR Impression: PATIENT: BRENDA CLARK PRESENT AGE : 62 PATIENT ACCOUNT NO: [id number] : 54 LOCATION: [facility] ORDERING PHYSICIAN: Paul Wagner MD SERVICE DATE: 11/14/17 EXAM TYPE: RAD - XRY-PORTABLE CHEST XRAY EXAMINATION: XR PORTABLE CHEST CLINICAL INFORMATION: Chest pain COMPARISON: 11/20/2016 TECHNIQUE: Portable frontal view of the chest was obtained. FINDINGS: Cardiac leads overlie the chest. Prominence of the overlying soft tissue somewhat limits the evaluation of the lung bases. The lungs appear well expanded. No definite consolidation. No edema or effusion. No pneumothorax. The cardiomediastinal silhouette is normal in size with a calcified aorta. IMPRESSION: No acute pulmonary finding. DICTATED BY: Chadwick Goldberg MD DATE/TIME DICTATED:11/15/1746 ASSISTED LIVING ADMINISTRATOR: ESTHER DATE/TIME TRANSCRIBED:11/15/1746 CONFIDENTIAL, DO NOT COPY WITHOUT APPROPRIATE AUTHORIZATION. <Electronically signed in Other Vendor System> SIGNED BY: Chadwick Goldberg MD 11/15/17 0053 Initial ED EKG: SINUS RHYTHM WITH NONSPECIFIC st-t CHANGES. lATE TRANSITION. nO CHANGE FROM PRIOR ekg. Prior EKG: unchanged Rhythm Strip: normal sinus rhythm Comments: The first sublingual nitroglycerin decreased the pain to the 2 out of 10. The second nitroglycerin took the pain away entirely. Departure Departure Disposition: STILL A PATIENT Condition: Stable Clinical Impression Primary Impression: ACS (acute coronary syndrome) Secondary Impressions: Hyperglycemia Referrals: Dinah Stovall APRN (PCP/Family) Departure Forms: Customer Survey General Discharge Information Admission Note Spoke With: Ozzie Keating MD Documentation of Exam: Documentation of any treatments & extenuating circumstances including Concerns Regarding Discharge (functional status, medication knowledge or non-compliance, living conditions, etc.) that warrant an admission rather than observation: [ Telemetry monitoring, serial enzymes, cardiology consultation, strict blood glucose control] Critical Care Note Critical Care Note Critical Care Time: non-applicable
[2017-11-15 00:17] LABS: ABSOLUTE BASOPHIL COUNT 0.1 /CUMM (0.0-0.2); ABSOLUTE EOSINOPHIL COUNT 0.2 /CUMM (0.0-0.7); ABSOLUTE GRANULOCYTE CT 4.8 /CUMM (1.4-6.5); ABSOLUTE LYMPH COUNT 2.8 /CUMM (1.2-3.4); ABSOLUTE MONOCYTE COUNT 0.7 /CUMM (0.10-0.60); BASOPHIL % 0.6 % (0.0-2.0); EOSINOPHIL % 2.7 % (0-5); GRANULOCYTE % 56.1 % (42.2-75.2); HEMATOCRIT 42.9 % (37-47); MEAN CORPUSCULAR HGB 31.9 PG (27.0-31.0); MEAN CORPUSCULAR HGB CONC 34.4 G/DL (33.0-37.0); MEAN CORPUSCULAR VOLUME 92.7 FL (81.0-99.0); MEAN PLATELET VOLUME 9.9 FL (7.4-10.4); PLATELET COUNT 193 /CUMM (130-400); RBC DISTRIBUTION WIDTH 13.6 % (11.5-14.5); RED BLOOD CELL CT 4.63 /CUMM (4.20-5.40); WHITE BLOOD CELL COUNT 8.6 /CUMM (4.8-10.8)
--- NOTE | 2017-11-15 00:53 | RADIOLOGY REPORT ---
EXAMINATION: XR PORTABLE CHEST CLINICAL INFORMATION: Chest pain COMPARISON: 11/20/2016 TECHNIQUE: Portable frontal view of the chest was obtained. FINDINGS: Cardiac leads overlie the chest. Prominence of the overlying soft tissue somewhat limits the evaluation of the lung bases. The lungs appear well expanded. No definite consolidation. No edema or effusion. No pneumothorax. The cardiomediastinal silhouette is normal in size with a calcified aorta. IMPRESSION: No acute pulmonary finding.
--- NOTE | 2017-11-15 03:42 | History & Physical ---
Ebony Lopez 11/15/17 0340: General Information and HPI History of Present Illness: Katia Clark is a 62 YO female with a PMHx. of Type 2 DM, HTN, HLD, and CVA who presents this morning with a chief complaint of "chest discomfort and dizziness." Patient states that around 7 pm yesterday she was attending a picnic when she started to feel dizzy after walking a few steps. Patient noted that she might faint and fell against a fence to hold herself upright. Patient says the episode lasted a few minutes, however once she sat down she described having symptoms of pressure on the left side of her chest. Patient denied any radiation of the chest discomfort and described it as a dull, pressure on her left chest. Patient states she had a similiar episode of dizziness 3 years prior after feeling dizzy while standing at a [place]. Patient today denies any loss of consciousness, palpitations, dyspnea, nausea, vomiting, peripheral edema, and dysuria. Patient denies any family history of coronary artery disease. Patient denies history of smoking tobacco. Patient drinks alcohol occasionally and is currently not working. Patient is and living independently. Patient mentions her glucose normally is between 120 to 180. Patient mentions, as an aside, that she had been visiting Dr. Robertson for cardiac clearance to undergo an elective gallbladder operation. Patient, as a result, had a stress test performed during her visit with Dr. Robertson. Patient's PCP is Dr. Nix. Patient's paper wrapping machine operator is Dr. Robertson. Past History Travel History Traveled to [place] past 21 day No Medical History Neurological: peripheral neuropathy EENT: NONE Cardiovascular: hypertension Respiratory: NONE Gastrointestinal: NONE Hepatic: NONE Renal: NONE Musculoskeletal: NONE Psychiatric: depression Endocrine: diabetes Tetanus Vaccine: 07/12/16 Surgical History Surgical History: none (vicky), non-contributory, N, hernia repair Past Family/Social History Family History Relations & Conditions if any MOTHER FH: stroke FATHER Interstitial lung disease Psychosocial History Services at Home: None Smoking Status: Never Smoked ETOH Use: occasional use Illicit Drug Use: denies illicit drug use Employment History Employment Unemployed Review of Systems Review of Systems EENTM: Denies: double vision, visual changes. Cardiovascular: Reports: chest pain. Denies: edema, orthopena, palpitations, peripheral edema. Respiratory: Denies: cough, orthopnea, short of breath. GI: Denies: abdominal pain, diarrhea, nausea. Genitourinary: Denies: no symptoms, dysuria. Musculoskeletal: Denies: joint pain, joint swelling. Skin: Denies: no symptoms. Neurological/Psychological: Reports: weakness. Exam & Diagnostic Data Last 24 Hrs of Vital Signs/I&O Vital Signs Date Time Temp Pulse Resp B/P B/P Pulse O2 O2 Flow FiO2 Mean Ox Delivery Rate 11/15 0427 Room Air 11/15 0153 98.2 65 20 131/59 98 Room Air 11/15 0051 98.0 65 20 181/79 98 Room Air 11/14 2332 99 Room Air 11/14 2331 98.0 80 20 202/85 99 Room Air 11/14 2318 98.0 67 18 210/126 97 Room Air Intake & Output 11/15 0800 11/15 0000 11/14 1600 Intake Total Output Total Balance Patient 245 lb Weight Weight Bed scale Reported by Patient Measurement Method Physical Exam Skin No Rashes Lymphatic Cervical nl Neurological Normal Gait (strength 4/5 L UE), strength 4/5 L UE; decreased facial movements Left-side of face Extremities No Edema, Normal Pulses Vascular Normal Pulses Assessment/Plan Assessment: Problem List: * ACS, Unstable Angina * Pre-syncope * h/o Type 2 DM * h/o HTN/HLD Plan: * Unstable Angina -Admit to telemetry for cardiac monitoring and assessment of vitals -Serial EKG and Troponin follow-up 7 AM and 2 PM (Troponin 1 AM normal <.01; EKG 11 PM showed NSR, LAFB, with no ST elevations/depressions or T wave inversions) -Aspirin and Atorvastatin to improve functional outcome and prevent potential complications of coronary ischemia/ACS -AM Cardiology Consult with Dr. Robertson; wait on recommendation for ECHO to evaluate heart function -Metoprolol PO bid and IV Heparin, depending on recommendation of cardiology consult -Insulin Aspart and Levemir to manage Type II DM -DVT PPx. -Pain managment PRN As Ranked By This Provider Problem List: 1. Unstable angina 2. Pre-syncope 3. Chest pain 4. Diabetes 5. Hypertension Core Measures/Misc (01/25) Acute Coronary Syndrome ACS Diagnosis: Yes Congestive Heart Failure Congestive Heart Failure Diagnosis No Cerebrovascular Accident CVA/TIA Diagnosis: No VTE (View Protocol) VTE Risk Factors Acute Medical Illness No Mechanical VTE Prophylaxis d/t N/A MechProphylax Ordered No VTE Pharm Prophylaxis d/t NA PharmProphylax ordered Sepsis (View protocol) Sepsis Present: No If YES complete Sepsis Event Note If YES complete Sepsis Event Note Celio Chan 11/15/17 0403: Core Measures/Misc (01/25) Sepsis (View protocol) If YES complete Sepsis Event Note If YES complete Sepsis Event Note Resident Review Statement Resident Statement: examined this patient, discussed with internetworking technician, agreed with internetworking technician Other Findings: Ms Clark is a 62 year old woman w/ a PMHx of CVA( ? [place] palsy 10 yrs ago w/ residual deficits ) hypertension, type 2 diabetes w/ neuropathy, depression came to the hospital with a chief concern of lightheadedness and chest discomfort that began approximately a few hours prior to the presentation. She was known to be in her usual state of health until this episode a few hours ago, when she spent all day outdoors; and had a glass of wine prior to the episode. She was walking in her kitchen, when she realized that she felt lightheadeded w/ no other prodromal symptoms such as palpitations, flusihing; and the episode lasted for less than a minute and she sat down in her chair. She had her family members next to her at that time, and reported no seizures or LOC or had any new neurological symptoms. No recent fever, abdominal symptoms, diarrhea, or dehydration. No dysurea, increasing pedal edema, no new medications. She also had chest discomfort that began at that time that lasted till she received NTG in the ER, no radiation, no diaphoresis. She took 162 mg ASA at home. She was evaluted by Dr Robertson 6 m ago for a cardiac clearance prior to her cholecystectomy and underwent stress test which was negative; but didnt get a cardiac clearance yet which was unclear. No recent stressors, or hospitalizatoins. Non smoker, occasional alcohol use, no ivda/stimulant drugs. Currently , and is retired. Reported similar complaints 3 yrs ago, but didnt get evaluated. At the time of admission-vitals temperature 98.0, pulse rate 65, respiration 20, blood pressure 181/79-have been 131/54, 98% on room air. General Exam: AAOx3, No acute distress, Skin: No rashes, no breakdown;HEENT: PERRLA, EOMI;Neck: Supple, No JVD;No cervical lymphadenopathy;CVS: Reg Rate, Normal S1,S2, No MGR;Resp: Normal air entry, no ronchi/rales;Abdomen: Soft, No tenderness, Normal Bowel Sounds;Neuro: Normal Speech, facial asymmetry, droop to the right side, Strength 5/5 b/l x 4 extremities, Sensation intact, CN III-XII NL, Reflexes 2+;Extremities: No cyanosis, 2 + pedal edema Pertinent lab findings: WBC 8.6, hemoglobin 14.8, platelet count 193. Sodium 1:30, potassium 3.7, chloride 101, bicarbonate 24, anion gap 18. BUN 18, creatinine 0.8, glucose 290. Calcium 8.0, albumin 2.9 ( corrected calcium 8.8) Liver chemistries-AST 35, AST 52, alkaline phosphatase 155. Troponin I-0.01 Urinalysis revealed glucose greater than 1000, urine protein 100, negative leukocyte esterase, nitrites. Blood gas revealed pH 7.38. EKG revealed NSR, LAFB, No STTWI. cxr- No acute pulmonary finding. Problem list: 1. Rule out ACS, unstable angina 2. Presyncope 3. h/o type 2 diabetes with neuropathy 4. h/o cva or bells palsy 5. h/o htn Etiology in this case is likely unstable angina with symptoms of chest discomfort w/o elevated cardiac enzymes with positive risk factors age, hld, dm , and depressoin. Other etiologies such as anxiety, aortic dissection, GERD, myocarditis, or PE are to considered as differentials. Patients with unstable angina requiring admission to inpatient hospital. # admit to telemetry for cardiac monitoring of any arrythmias. # Recd ASA 162mg at home, start daily aspirin and Atorvastatin 80mg daily. # serial electrocardiograms, cardiac enzymes every 8 hours # for the management of angina- SL nitroglycerin q5 min x 3, than can use iv nitro and iv morphine for pain control(hold for low BP) # 2 D Echocardiogram after discussing with the paper wrapping machine operator. # metoprolol succinate or carvedilol by mouth within the first 24 hoursafter ruling out contraindications such as active CHF, bradycardia, hypotension, heart block and cocaine use. # IV heparin after conferring with cardiology, if needed. # discuss early intervention with cardiac catheterization, if pt develops uncontrolled angina, dynamic EKG changes. # check thyroid function, U tox. # check orthostat vitals, received NS x 2 L in the ER. # Accuchecks, insulin sliding scale, levemir 20 u bid w/ first dose now. # cardiology cosult w/ Dr. Marcelo Keating MD,[place] 11/15/17 0551: General Information and HPI MD Statement: I have seen and personally examined KATIA CLARK and documented this H&P. The patient is a 62 year old F who presented with a patient stated chief complaint of [dizzines]. Allergies/Medications Allergies: Coded Allergies: lisinopril (ANAPHYLAXIS 07/12/16) Home Med list Amlodipine Besylate 10 MG TABLET 1 TAB PO DAILY BP (Reported) Amoxicillin/Potassium Clav (Augmentin 875-125 Tablet) 875 MG-125 MG TABLET 1 TAB PO BID cellulitis Aspirin (Ecotrin*) 81 MG TABLET.DR 1 TAB PO DAILY HEART/BLOOD (Reported) Cinnamon Bark (Cinnamon) 500 MG CAPSULE 1 CAP PO DAILY SUPPLEMENT (Reported) Cranberry Extract (Cranberry) 425 MG CAPSULE 2 CAP PO DAILY SUPPLEMENT ( Reported) Duloxetine HCl 60 MG CAPSULE.DR 1 CAP PO QAM MENTAL HEALTH (Reported) Fenofibric Acid (Trilipix) 135 MG CAPSULE.DR 1 CAP PO DAILY TRIGLYCERIDES/ CHOLESTEROL (Reported) Hydrochlorothiazide 25 MG TABLET 1 TAB PO DAILY BP (Reported) Insulin Aspart, Recombinant (Novolog Flexpen) 100 UNIT/ML INSULN.PEN DM ( Reported) Insulin Detemir (Levemir) 100 UNIT/ML VIAL 50 UNITS SC QPM DM (Reported) Losartan Potassium 100 MG TABLET 1 TAB PO DAILY BP (Reported) Melatonin 5 MG TABLET 1 TAB PO DAILY SUPPLEMENT (Reported) Meloxicam 15 MG TABLET 1 TAB PO DAILY PAIN (Reported) Multivit/Iron/FA/K/Herb No.244 (Alive Women's Energy Mv Tablet) 18 MG IRON-400 MCG-80 MCG TABLET 1 TAB PO DAILY SUPPLEMENT (Reported) [place]-3 Acid Ethyl Esters 1 GRAM CAPSULE 2 CAP PO BID CHOLESTEROL (Reported) Ondansetron (Zofran Odt) 4 MG TAB.RAPDIS 1 TAB SL TID PRN nausea Pregabalin (Lyrica) 150 MG CAPSULE 1 CAP PO BID NERVE PAIN (Reported) Rosuvastatin Calcium (Crestor) 10 MG TABLET 1 TAB PO DAILY CHOLESTEROL ( Reported) Past History Medical History Neurological: peripheral neuropathy Cardiovascular: hypertension Psychiatric: depression Endocrine: diabetes Surgical History Surgical History: non-contributory Past Family/Social History Psychosocial History Smoking Status: Never Smoked ETOH Use: occasional use Illicit Drug Use: denies illicit drug use Employment History Employment Unemployed Review of Systems Review of Systems Constitutional: Reports: see HPI. Exam & Diagnostic Data Last 24 Hrs of Vital Signs/I&O Vital Signs Date Time Temp Pulse Resp B/P B/P Pulse O2 O2 Flow FiO2 Mean Ox Delivery Rate 11/15 0427 Room Air 11/15 0153 98.2 65 20 131/59 98 Room Air 11/15 0051 98.0 65 20 181/79 98 Room Air 11/14 2332 99 Room Air 11/14 2331 98.0 80 20 202/85 99 Room Air 11/14 2318 98.0 67 18 210/126 97 Room Air Intake & Output 11/15 0800 11/15 0000 11/14 1600 Intake Total Output Total Balance Patient 245 lb Weight Weight Bed scale Reported by Patient Measurement Method Physical Exam General Appearance Alert, Oriented X3, No Acute Distress HEENT Atraumatic, PERRLA, EOMI Neck Supple, No JVD Cardiovascular Regular Rate, Normal S1, Normal S2, No Murmurs Lungs Clear to Auscultation Abdomen Normal Bowel Sounds, Soft, No Tenderness Last 24 Hrs of Labs/Maged: Laboratory Tests 11/15/17 0140: Bicarbonate Actual 27 H, Mixed VBG pH 7.38, Mixed VBG pCO2 46, Mixed VBG O2 Saturation 40, P-50 (Temp Corrected) Y, Carboxyhemoglobin 0.2 L, O2 Concentration % RA, Temperature 98.7, Phlebotomy Draw Site R HAND 11/15/17 0056: Anion Gap 8, Estimated GFR > 60, BUN/Creatinine Ratio 22.5, Glucose 290 H, Calcium 8.0 L, Total Bilirubin 0.3, AST 35, ALT 52, Alkaline Phosphatase 155 H , Troponin I < 0.01, Total Protein 5.5 L, Albumin 2.9 L, Globulin 2.6, Albumin /Globulin Ratio 1.1, Amylase 50, Lipase 175, TSH &T3 &Free T4 Intrp 3.110, Acetone Level NEGATIVE 11/15/17 0020: Urine Color YEL, Urine Clarity HAZY H, Urine pH 6.0, Ur Specific [place] 1.010, Urine Protein 100 H, Urine Ketones NEG, Urine Nitrite NEG, Urine Bilirubin NEG, Urine Urobilinogen 0.2, Ur Leukocyte Esterase NEG, Ur Microscopic SEDIMENT EXAMINED, Urine RBC 1-3, Ur Epithelial Cells RARE, Urine Bacteria FEW H, Urine Hemoglobin TRACE-INTACT, Urine Glucose >=1000 H 11/15/17 0005: CBC w Diff NO MAN DIFF REQ, RBC 4.63, MCV 92.7, MCH 31.9 H, MCHC 34.4, RDW 13.6 , MPV 9.9, Gran % 56.1, Lymphocytes % 32.4, Monocytes % 8.2, Eosinophils % 2.7, Basophils % 0.6, Absolute Granulocytes 4.8, Absolute Lymphocytes 2.8, Absolute Monocytes 0.7 H, Absolute Eosinophils 0.2, Absolute Basophils 0.1 Core Measures/Misc (01/25) Sepsis (View protocol) If YES complete Sepsis Event Note If YES complete Sepsis Event Note Attending MD Review Statement Attending Statement Attending MD Statement: examined this patient, discuss w/resident/PA/SIGNAL CIRCUIT DESIGNER, amended to note Attending Assessment/Plan: This patient is a 62 year old white female with a significant past medical history for CVA( ? [place] palsy 10 yrs ago w/ residual deficits) hypertension, type 2 diabetes w/ neuropathy, and depression. She came to the hospital with a chief concern of lightheadedness and chest discomfort that began a few hours prior to the presentation. She was in her usual state of health until this episode. According to the patient, she was walking in her kitchen, when she felt lightheaded, the episode lasted for less than a minute and she sat down in her chair. She also had chest discomfort that began at that time that lasted till she received NTG in the ER, no radiation, no diaphoresis. She took ASA at home. She was evaluated by Dr. Robertson 6 m ago for a cardiac clearance prior to her cholecystectomy and underwent stress test which was negative. Her initial Troponin I is-0.01. Plan: Rule out ACS, unstable angina, evaluate Presyncope. Admit to telemetry, serial electrocardiograms, cardiac enzymes every 8 hours, ASA, Beta blockers, and Cardiology consult.
[2017-11-15 09:49] VITALS: BP 130/60
--- NOTE | 2017-11-15 10:53 | Cons- Cardiology ---
General Information and HPI Consulting Request Date of Consult: 11/15/17 Requested By: Ozzie Keating MD History of Present Illness: Katia is a 62 year old female with history of hypertension, dyslipidemia, diabetes and obesity. She was seen in the office by me a few months ago for surgical clearance and at that time mentioned some chest discomfort. I did risk stratify her with a pharmacologic stress test that was negative for ischemia. Yesterday, while at a picnic, the patient suddenly became lightheaded and needed to lean agaist a fence. She denies feeling any palpitations at that time. She subsequently noted a mild left sided and non-radiating chest pressure that was associated with nausea and diaphoresis. The discomfort did seem to be worse with walking and improved with rest. She did not feel particularly short of breath. Allergies/Medications Allergies: Coded Allergies: lisinopril (ANAPHYLAXIS 07/12/16) Home Med List: Amlodipine Besylate 10 MG TABLET 1 TAB PO DAILY BP (Reported) Amoxicillin/Potassium Clav (Augmentin 875-125 Tablet) 875 MG-125 MG TABLET 1 TAB PO BID cellulitis Aspirin (Ecotrin*) 81 MG TABLET.DR 1 TAB PO DAILY HEART/BLOOD (Reported) Cinnamon Bark (Cinnamon) 500 MG CAPSULE 1 CAP PO DAILY SUPPLEMENT (Reported) Cranberry Extract (Cranberry) 425 MG CAPSULE 2 CAP PO DAILY SUPPLEMENT ( Reported) Duloxetine HCl 60 MG CAPSULE.DR 1 CAP PO QAM MENTAL HEALTH (Reported) Fenofibric Acid (Trilipix) 135 MG CAPSULE.DR 1 CAP PO DAILY TRIGLYCERIDES/ CHOLESTEROL (Reported) Hydrochlorothiazide 25 MG TABLET 1 TAB PO DAILY BP (Reported) Insulin Aspart, Recombinant (Novolog Flexpen) 100 UNIT/ML INSULN.PEN DM ( Reported) Insulin Detemir (Levemir) 100 UNIT/ML VIAL 50 UNITS SC QPM DM (Reported) Losartan Potassium 100 MG TABLET 1 TAB PO DAILY BP (Reported) Melatonin 5 MG TABLET 1 TAB PO DAILY SUPPLEMENT (Reported) Meloxicam 15 MG TABLET 1 TAB PO DAILY PAIN (Reported) Multivit/Iron/FA/K/Herb No.244 (Alive Women's Energy Mv Tablet) 18 MG IRON-400 MCG-80 MCG TABLET 1 TAB PO DAILY SUPPLEMENT (Reported) [place]-3 Acid Ethyl Esters 1 GRAM CAPSULE 2 CAP PO BID CHOLESTEROL (Reported) Ondansetron (Zofran Odt) 4 MG TAB.RAPDIS 1 TAB SL TID PRN nausea Pregabalin (Lyrica) 150 MG CAPSULE 1 CAP PO BID NERVE PAIN (Reported) Rosuvastatin Calcium (Crestor) 10 MG TABLET 1 TAB PO DAILY CHOLESTEROL ( Reported) Review of Systems Review of Systems: A review of systems is remarkable for stress. Past History Travel History Traveled to [place] past 21 day No Medical History Blood Transfusion Hx: No Neurological: peripheral neuropathy EENT: NONE Cardiovascular: hypertension Respiratory: NONE Gastrointestinal: NONE Hepatic: NONE Renal: NONE Musculoskeletal: NONE Psychiatric: depression Endocrine: diabetes Blood Disorders: NONE Cancer(s): NONE CHEMISTRY ASSOCIATE/Reproductive: NONE Surgical History Surgical History: non-contributory Family History Relations & Conditions If Any: MOTHER FH: stroke FATHER Interstitial lung disease Psychosocial History Where Do You Live? Home Services at Home: None Smoking Status: Never Smoked ETOH Use: occasional use Illicit Drug Use: denies illicit drug use Employment History Employment: Unemployed Exam & Diagnostic Data Vital Signs and I&O Vital Signs Date Time Temp Pulse Resp B/P B/P Pulse O2 O2 Flow FiO2 Mean Ox Delivery Rate 11/15 0949 98.2 73 18 130/60 97 Room Air 11/15 0834 130/60 / 0834 130/60 / 0427 Room Air / 0153 98.2 65 20 131/59 98 Room Air / 0051 98.0 65 20 181/79 98 Room Air 11/14 2332 99 Room Air 11/14 2331 98.0 80 20 202/85 99 Room Air 11/14 2318 98.0 67 18 210/126 97 Room Air Intake & Output 11/15 1600 11/15 0800 11/15 0000 11/14 1600 11/14 0800 11/14 0000 Intake Total 200 Output Total Balance 200 Intake, Oral 200 Patient 245 lb Weight Weight Bed scale Reported by Patient Measurement Method Physical Exam: General: WD/obese female in NAD; alert and oriented x 3 HEENT: NC/AT, PERRL, EOMI Neck: no JVD, no carotid bruit Heart: RRR w/o murmur Lungs: clear bilaterally Abdomen: soft, obese, NT, +ve bowel sounds Extremities: no edema Assessment/Plan Assessment/Plan * This patient has multiple risk factors for coronary artery disease and may well have had myocardial ischemia associated with a cardiac dysrhythmia making her transiently lightheaded. She is also noted to have poorly controlled blood pressure and may well have subendocardial ischemia causing her symptoms from the high pressures; especially in light of her stress test this past May that was negative for ischemia. * The patient appears to have a well controlled blood pressure on her current drug regimen today. * Obtain an echocardiogram to assess for LVH and her overall EF. * We will plan on risk stratification via a pharmacologic stress test tomorrow. Consult Acknowledgment - Thank you for your consult request.
--- NOTE | 2017-11-15 11:12 | PN- Att Addend ---
Attending Addendum Attending Brief Note Patient seen and examined. Resting comfortably not in any acute distress. No issues overnight. No events on telemetry monitoring since admission. She remains in normal sinus rhythm. Denies any further dizziness. Denies any further chest pain. Blood pressure was significantly elevated on admission but has improved. She is on her home medication regimen. Problems: 1. Chest pain 2. Uncontrolled hypertension 3. Dizziness; resolved 4. Rhm-prpxhkh-mwfyeyxfo diabetes mellitus Plan: -Acute coronary syndrome has been ruled out. However due to her risk factors further cardiac testing is warranted. She is scheduled to undergo stress test tomorrow. (Patient had a negative pharmacological stress test in May.) -Continue current antihypertensive regimen of amlodipine and losartan. -Continue insulin sliding scale coverage. Continue to hold metformin while she is in the hospital.
[2017-11-15 13:56] VITALS: BP 130/80
[2017-11-15 22:42] VITALS: BP 156/88
[2017-11-16 06:09] VITALS: BP 110/70
--- NOTE | 2017-11-16 07:52 | PN- Housestaff ---
Jeannette Paulson 11/16/17 0752: Subjective Follow-up For: Presyncope, unstable angina Complaints: no complaints Tele-Events Since Last Visit: Normal sinus rhythm heart rate 65-73. Review of Systems Constitutional: Reports: see HPI. Objective Last 24 Hrs of Vital Signs/I&O Vital Signs Date Time Temp Pulse Resp B/P B/P Pulse O2 O2 Flow FiO2 Mean Ox Delivery Rate 11/16 0820 124/70 11/16 0820 124/70 11/16 0609 97.7 72 16 110/70 95 /08 2242 99.4 66 16 156/88 95 Intake & Output 11/16 1600 11/16 0800 11/16 0000 Intake Total 220 Output Total Balance 220 Intake, Oral 220 Patient 250 lb 260 lb Weight Weight Chair scale Measurement Method Physical Exam General Appearance: Alert, Oriented X3, Cooperative Skin: No Rashes, No Breakdown, No Significant Lesion Skin Temp/Moisture Exam: Cool/Dry HEENT: Atraumatic, PERRLA Neck: Supple Cardiovascular: Regular Rate, Normal S1, Normal S2 Lungs: Clear to Auscultation, Normal Air Movement Abdomen: Normal Bowel Sounds, Soft, No Tenderness Neurological: Normal Speech Assessment/Plan Assessment: 62 YO female with a PMHx. of Type 2 DM, HTN, HLD, and CVA who presents this morning with a chief complaint of "chest discomfort and dizziness" she felt she might faint and fell against a fence to hold herself upright. this lasted a few minutes, however once she sat down she described having symptoms of pressure on the left side of her chest. Patient denied any radiation of the chest discomfort and described it as a dull, pressure on her left chest. Vitals: Temp 97.7, pulse 72, respiratory rate 16, blood pressure 1 10 x 70, 95% room air. Labs: WBC 6.8, RBC 4.24, hemoglobin 13.4, platelet 191,Sodium 135, potassium 4.6 , chloride 98, carbon dioxide 29, anion gap 9, BUN 20, creatinine 0.9 Problem List: * ACS, Unstable Angina * Pre-syncope * h/o Type 2 DM * h/o HTN/HLD PLAN: -Is n.p.o. awaiting her cardiac stress test today. -Cardiology consult after cardiac stress test -Anticipated discharge tomorrow -Her blood glucose levels were high today so her sliding scale has been adjusted Problem List: 1. Unstable angina 2. Pre-syncope 3. Diabetes 4. Hypertension 5. Chest pain Pain Ratin Pain Location: None Pain Goal: Remain pain free Pain Plan: Remain pain-free Tomorrow's Labs & Rationales: antonio, franchesca Bustillos MD,Balaji 11/16/17 1514: Attending MD Review Statement Attending Statement Attending MD Statement: examined this patient, discuss w/resident/PA/SUMAC TANNER, agreed w/resident/PA/SUMAC TANNER, reviewed EMR data (avail), discussed with nursing, discussed with case mgmt, amended to note Attending Assessment/Plan: Patient seen and examined sitting comfortably and not in acute distress. No issues overnight. No events on telemetry monitoring. She remains in normal sinus rhythm. No new complaints this morning. Denies chest pain or shortness of breath. No palpitations. She was seen by cardiology service yesterday with recommendations for a nonstress test to be done today. She had a negative stress test earlier this year. The stress test is negative she may be discharged home today unless otherwise recommended by cardiology service. An echocardiogram was done while awaiting results. This should be reviewed by her doll wig maker rooted hair prior to discharge. Her blood glucose levels elevated today. Her sliding scale coverage has been adjusted.
[2017-11-16 08:12] LABS: ABSOLUTE BASOPHIL COUNT 0 /CUMM (0.0-0.2); ABSOLUTE EOSINOPHIL COUNT 0.3 /CUMM (0.0-0.7); ABSOLUTE GRANULOCYTE CT 3.3 /CUMM (1.4-6.5); ABSOLUTE LYMPH COUNT 2.5 /CUMM (1.2-3.4); ABSOLUTE MONOCYTE COUNT 0.6 /CUMM (0.10-0.60); BASOPHIL % 0.5 % (0.0-2.0); EOSINOPHIL % 4.8 % (0-5); HEMATOCRIT 39.7 % (37-47); MEAN CORPUSCULAR HGB 31.6 PG (27.0-31.0); MEAN CORPUSCULAR HGB CONC 33.8 G/DL (33.0-37.0); MEAN CORPUSCULAR VOLUME 93.5 FL (81.0-99.0); MEAN PLATELET VOLUME 10.4 FL (7.4-10.4); PLATELET COUNT 191 /CUMM (130-400); RBC DISTRIBUTION WIDTH 13.6 % (11.5-14.5); RED BLOOD CELL CT 4.24 /CUMM (4.20-5.40); WHITE BLOOD CELL COUNT 6.8 /CUMM (4.8-10.8)
--- NOTE | 2017-11-16 13:32 | Patient Discharge Instructions ---
Discharge Instructions General Discharge Information You were seen/treated for: Unstable angina, pre-syncope Watch for these problems: If you get chest pain, shortness of breath, syncope, fall, please visit your nearest emergency room Special Instructions: Please follow-up with your primary care physician 1 week after discharge Follow-up with your wrapper opener week after discharge Diet Continue normal diet: Yes Recommended Diet: Heart Healthy Acute Coronary Syndrome Inclusion Criteria At DC or during hospital stay patient has or had the following: Discharge Core Measures Meds if any: Prescribed or Continued at Discharge Meds if any: NOT Prescribed or Continued at Discharge Congestive Heart Failure Inclusion Criteria At DC or during hospital stay patient has or had the following: CHF DIAGNOSIS No Discharge Core Measures Meds if any: Prescribed or Continued at Discharge Meds if any: NOT Prescribed or Continued at Discharge Cerebrovascular accident Inclusion Criteria At DC or during hospital stay patient has or had the following: CVA/TIA Diagnosis No Discharge Core Measures Meds if any: Prescribed or Continued at Discharge Meds if any: NOT Prescribed or Continued at Discharge Venous thromboembolism Inclusion Criteria VTE Diagnosis No Discharge Core Measures - Per Current guidelines, there needs to be overlap - treatment for the first 5 days of Warfarin therapy. - If discharged on Warfarin prior to 5 days of - overlap therapy, the patient will need to be - assessed for post discharge needs including - *Post discharge parental anticoagulation - *Warfarin and/or parental anticoagulation education - *Follow up date to check INR post discharge Meds if any: Prescribed or Continued at Discharge Note: Overlap Therapy is Warfarin and Anticoagulant Meds if any: NOT Prescribed or Continued at Discharge
--- NOTE | 2017-11-16 14:29 | IV DIPYRIDAMOLE NUCLEAR STRESS ---
Clinical Diagnosis: Chest Pain Enrolled Nurse: Blaine Caldwell IV DIPYRIDAMOLE INFUSED: 60 mg IV AMINOPHYLLINE INFUSED: 0 mg PATIENT WEIGHT: 250 lbs INTERPRETATION: The patient's baseline EKG showed normal sinus rhythm at 75 BPM. Baseline B/P 138/82. The patient received 60 mg of dipyridamole infused intravenously over a 4 minute period. TC99M Myoview was injected after dipyridamole infusion. The patient tolerated the infusion well. There were no EKG changes seen following pharmacologic infusion. Arrhythmias: None IMPRESSION: The test was supervised by the interpreting Lens Engraver, who was in attendance during the entire test. No EKG evidence of stress induced myocardial ischemia. See separately dictated Nuclear Report.
[2017-11-16 14:49] VITALS: BP 144/90
--- NOTE | 2017-11-16 17:11 | PN- Cardiology ---
Subjective Subjective: * No complaints of chest discomfort, shortness of breath, lightheadedness or palpitations. No abdominal discomfort. * Sinus rhythm * Normal cardiac enzymes Objective Vital Signs and I&Os Vital Signs Date Time Temp Pulse Resp B/P B/P Pulse O2 O2 Flow FiO2 Mean Ox Delivery Rate 11/16 1449 97.8 76 18 144/90 96 Room Air 11/16 0820 124/70 11/16 0820 124/70 11/16 0609 97.7 72 16 110/70 95 11/15 2242 99.4 66 16 156/88 95 Intake & Output 11/16 1600 11/16 0800 11/16 0000 11/15 1600 11/15 0800 11/15 0000 Intake Total 400 220 400 200 Output Total Balance 400 220 400 200 Intake, Oral 400 220 400 200 Patient 250 lb 260 lb 245 lb Weight Weight Chair scale Bed scale Reported by Patient Measurement Method Physical Exam: General: WD/obese female in NAD; alert and oriented x 3 HEENT: NC/AT, PERRL, EOMI Neck: no JVD, no carotid bruit Heart: RRR w/o murmur Lungs: clear bilaterally Abdomen: soft, obese, NT, +ve bowel sounds Extremities: no edema Assessment/Plan Assessment/Plan * This patient has multiple risk factors for coronary artery disease and may well have had myocardial ischemia associated with a cardiac dysrhythmia making her transiently lightheaded. She is also noted to have poorly controlled blood pressure and may well have subendocardial ischemia causing her symptoms from the high pressures; especially in light of her stress test this past May that was negative for ischemia. * The patient appears to have a well controlled blood pressure on her current drug regimen today. * Will review her echocardiogram to assess for LVH and her overall EF. * Stress test results are pending. Continue telemetry? Yes
[2017-11-16 23:04] VITALS: BP 140/60
--- NOTE | 2017-11-17 06:31 | PN- Housestaff ---
Subjective Follow-up For: Stable angina, pre- syncope Complaints: no complaints Tele-Events Since Last Visit: Normal sinus rhythm heart rate 60-74 Subjective: No complaints/no acute events Review of Systems Constitutional: Reports: see HPI. Objective Last 24 Hrs of Vital Signs/I&O Vital Signs Date Time Temp Pulse Resp B/P B/P Pulse O2 O2 Flow FiO2 Mean Ox Delivery Rate 11/17 1400 97.6 71 20 150/80 95 11/17 0838 118/64 11/17 0837 118/64 11/17 0701 98.1 60 18 112/58 97 Room Air Intake & Output 11/18 0800 11/18 0000 11/17 1600 Intake Total 400 Output Total Balance 400 Intake, Oral 400 Physical Exam General Appearance: Alert, Oriented X3, Cooperative, No Acute Distress Skin: No Rashes, No Breakdown, No Significant Lesion Skin Temp/Moisture Exam: Cool/Dry HEENT: Atraumatic Neck: Supple Cardiovascular: Regular Rate, Normal S1, Normal S2, No Murmurs Lungs: Clear to Auscultation, Normal Air Movement Abdomen: Normal Bowel Sounds, Soft, No Tenderness Neurological: Normal Gait, Normal Speech Extremities: No Clubbing, No Cyanosis, No Edema Assessment/Plan Assessment: 62 YO female with a PMHx. of Type 2 DM, HTN, HLD, and CVA who presents this morning with a chief complaint of chest discomfort, pressure and dizziness. Patient denied any radiation of the chest discomfort and described it as a dull, pressure on her left chest. Vitals: Temp 98.1, pulse 60, respiratory rate 18, BP 1 12 x 58, 97% on room air Labs: Not needed today Problem List: * ACS, Unstable Angina * Pre-syncope * h/o Type 2 DM * h/o HTN/HLD -Cardiac SPECT scan result:Normal Persantine stress and resting myocardial perfusion study with normal left ventricular wall motion and ejection fraction. Plan: -Is n.p.o. awaiting her cardiac stress test today the machine broke down yesterday so it could not be done -Cardiology consult after cardiac stress test -Anticipated discharge as per cardiology recommendations -Her blood glucose levels were high today so her sliding scale has been adjusted Problem List: 1. Unstable angina 2. Pre-syncope 3. Diabetes Pain Ratin Pain Location: None Pain Goal: Remain pain free Pain Plan: n/a Tomorrow's Labs & Rationales: [email or web address]
--- NOTE | 2017-11-17 06:59 | ECHOCARDIOGRAM REPORT ---
BRENDA CLARK Age: 62 : 1955 Gender: F Exam Date: 11/16/2017 19:26 Exam Location: [address] Ht (in): 63 Wt (lb): 245 BSA: 2.29 BP: 110 / 70 Ordering Physician: Libby Pearson MD Referring Physician: Rich Robertson MD, PhD Technologist: Marlene Guthrie [facility] Room Number: [id number] Indications: CHEST PAIN Rhythm: Sinus Technical Quality: fair FINDINGS Left Ventricle Normal left ventricular size with mild left ventricular hypertrophy. Normal systolic function with no obvious regional wall motion abnormalities. Normal left ventricular diastolic filling pattern for age. The ejection fraction is visually estimated at 55%. Right Ventricle The right ventricle is normal in size and function. Right Atrium The right atrium is normal in size. Left Atrium The left atrium is normal in size. The interatrial septum is intact. Mitral Valve The mitral valve demonstrates mild annular calcification with normal function. There is mild mitral regurgitation. Aortic Valve Structurally normal aortic valve without significant sclerosis or stenosis. There is trace aortic regurgitation. Tricuspid Valve The tricuspid valve is normal in structure and function. There is trace tricuspid regurgitation. Pulmonary artery systolic pressure is normal. Pulmonic Valve Structurally normal pulmonic valve. There is no pulmonic regurgitation. Pericardium Normal pericardium without effusion. No pleural effusion. Great Vessels Normal aortic root dimension. The aortic arch and great vessels are well seen and are normal. CONCLUSIONS 1. Normal EF of 55%. 2. Mild left ventricular hypertrophy. 3. Mild mitral regurgitation. 4. Trace tricuspid regurgitation. 5. Trace aortic insufficiency. Rich Robertson M.D. (Electronically Signed) Final Date: 17 November 2017 06:58 MEASUREMENTS (Male / Female) Normal Values 2D ECHO LV Diastolic Diameter PLAX 4.2 cm 4.2 - 5.9 / 3.9 - 5.3 cm LV Systolic Diameter PLAX 2.4 cm 2.1 - 4.0 cm LV Fractional Shortening PLAX 42.9 % 25 - 46 % LV Ejection Fraction 2D Teich 74.3 % IVS Diastolic Thickness 1.3 cm LVPW Diastolic Thickness 1.2 cm LV Relative Wall Thickness 0.6 RV Internal Dim ED PLAX 2.6 cm 1.9 - 3.8 cm LVOT Diameter 1.9 cm Aortic Root Diameter 2.6 cm LA Systolic Diameter LX 3.4 cm 3.0 - 4.0 / 2.7 - 3.8 cm LA Volume 37.0 cm 18 - 58 / 22 - 52 cm Ascending Aorta Diameter 3.1 cm DOPPLER AV Peak Velocity 164.0 cm/s AV Peak Gradient 10.8 mmHg AV Mean Velocity 104.0 cm/s AV Mean Gradient 5.0 mmHg AV Velocity Time Integral 31.5 cm LVOT Peak Velocity 103.0 cm/s LVOT Peak Gradient 4.2 mmHg LVOT Mean Velocity 65.9 cm/s LVOT Mean Gradient 2.0 mmHg LVOT Velocity Time Integral 21.6 cm LVOT Stroke Volume 61.2 cm AV Area Cont Eq vti 1.9 cm AV Area Cont Eq pk 1.8 cm MV Peak Velocity 95.9 cm/s MV Peak Gradient 3.7 mmHg MV Mean Velocity 51.6 cm/s MV Mean Gradient 1.0 mmHg Mitral E Point Velocity 66.1 cm/s Mitral A Point Velocity 83.4 cm/s Mitral E to A Ratio 0.8 MV PHT Velocity 87.7 cm/s MV Deceleration [place] 336.0 cm/s MV Pressure Half Time 78.3 ms MV Area PHT 2.8 cm MV Deceleration Time 172.0 ms PV Peak Velocity 142.0 cm/s PV Peak Gradient 8.1 mmHg PV Mean Velocity 86.0 cm/s PV Mean Gradient 4.0 mmHg PV Velocity Time Integral 28.9 cm LV E' Lateral Velocity 8.6 cm/s Mitral E to LV E' Lateral Ratio 7.7 LV E' Septal Velocity 5.2 cm/s Mitral E to LV E' Septal Ratio 12.6
[2017-11-17 07:01] VITALS: BP 112/58
--- NOTE | 2017-11-17 12:35 | NUCLEAR MEDICINE REPORT ---
PERSANTINE STRESS AND RESTING SPECT MYOCARDIAL PERFUSION IMAGING STUDY WITH GATED SPECT IMAGES: CLINICAL INDICATION: Hypertension, diabetes, obesity. PROCEDURE: Regional myocardial perfusion was assessed using a 2 day protocol. Stress images were obtained on 11/16/2017 following the intravenous administration of 28.5 mCi Tc 99m Myoview. Stress consisted of 60 mg Persantine given intravenously. Following the sestamibi injection, no aminophylline was given intravenously. Rest images were obtained 11/17/2017 following the intravenous administration of 40.3 mCi Technetium 99m Myoview. Single photon emission tomographic (SPECT) images were obtained. SPECT images were acquired in a 64 x 64 matrix of 64 projections over 180 degrees. These were reconstructed into standard short axis, horizontal and vertical long axis cardiac projections. FINDINGS: The post stress images demonstrate the left ventricular chamber to be normal in size. There is homogeneous distribution of activity in the left ventricular myocardium with no regions of abnormally decreased activity noted. The resting images also demonstrate homogeneous distribution of activity in the left ventricular myocardium, and are not significantly changed from the post stress images. The images were obtained using a gated SPECT technique, which permits visualization of wall motion and calculation of the left ventricular ejection fraction. No left ventricular wall motion abnormalities are noted on either the stress or resting study. The calculated left ventricular ejection fraction is 73% on the stress study. No previous study is available for comparison. IMPRESSION: Normal Persantine stress and resting myocardial perfusion study with normal left ventricular wall motion and ejection fraction.
[2017-11-17 14:00] VITALS: BP 150/80
--- NOTE | 2017-11-17 16:21 | Discharge Summary ---
Visit Information Visit Dates Admission Date: 11/15/17 Discharge Date: 11/17/17 Hospital Course Course Attending Physician: Balaji Bustillos MD Primary Care Physician: Dinah Stovall APRN Hospital Course: Katia Jonas is a 62 YO female with a PMHx. of Type 2 DM, HTN, HLD, and CVA who presented on November 15 with a chief complaint of "chest discomfort and dizziness." Patient states that around 7 pm on November 14 she was attending a picnic when she started to feel dizzy after walking a few steps. Patient noted that she might faint and fell against a fence to hold herself upright. Patient says the episode lasted a few minutes, however once she sat down she described having symptoms of pressure on the left side of her chest. Patient denied any radiation of the chest discomfort and described it as a dull, pressure on her left chest. Patient states she had a similiar episode of dizziness 3 years prior after feeling dizzy while standing at a [place]. Patient denies any loss of consciousness, palpitations, dyspnea, nausea, vomiting, peripheral edema, and dysuria. Hospital course: Patient is full code. Admited to telemetry for cardiac monitoring and assessment of vitals. She received aspirin 162 mg at home and started on daily aspirin and atorvastatin 80 mg daily. Her troponins were trended and serial EKGs were done. No events on telemetry monitoring. She remained in normal sinus rhythm. Her blood pressure was well controlled. Blood glucose levels were elevated during the hospital stay so her sliding scale coverage with Insulin Aspart and Levemir was updated to manage Type II DM. Pain management as needed. Discharged the patient to home. She will follow up with her primary care physician and manager physical within 1 week of discharge. She will continue a heart healthy diet. Allergies: Coded Allergies: lisinopril (ANAPHYLAXIS 07/12/16) Significant Procedures: Chest x-ray: No acute pulmonary finding. Echocardiogram: 1. Normal EF of 55%. 2. Mild left ventricular hypertrophy. 3. Mild mitral regurgitation. 4. Trace tricuspid regurgitation. 5. Trace aortic insufficiency. Cardiac stress test: Normal Persantine stress and resting myocardial perfusion study with normal left ventricular wall motion and ejection fraction. Pertinent Lab Results: Troponins: Less than 0.01----less than 0.01-----less than 0.01 Disposition Summary Disposition Principal Diagnosis: Unstable angina Additional Diagnosis: Presyncope, chest pain, diabetes, hypertension, obesity (Her height is 5'3'' and noted weight ranged from 250-260. BMI is 43.4.) Discharge Disposition: home or self care Discharge Instructions General Discharge Information Code Status: Full Code Patient's Diet: Heart healthy Patient's Activity: As tolerated Follow-Up Instructions/Appts: Watch for these problems: If you get chest pain, shortness of breath, syncope, fall, please visit your nearest emergency room Special Instructions: Please follow-up with your primary care physician 1 week after discharge Follow-up with your manager physical week after discharge Medications at Discharge Discharge Medications: Stop taking the following medications: Meloxicam (Meloxicam) 15 MG TABLET ORAL DAILY Qty = 30 Amoxicillin/Potassium Clav (Augmentin 875-125 Tablet) 875 MG-125 MG TABLET ORAL TWICE DAILY Qty = 20 Continue taking these medications: [place]-3 Acid Ethyl Esters ([place]-3 Acid Ethyl Esters) 1 GRAM CAPSULE 2 Capsule ORAL TWICE DAILY Qty = 120 Comments: Last Taken:11/17/17 Time:0900 Aspirin (Ecotrin*) 81 MG TABLET.DR 1 Tablet ORAL DAILY Comments: Last Taken:11/17/17 Time:0900 Duloxetine HCl (Duloxetine HCl) 60 MG CAPSULE.DR 1 Capsule ORAL Every Morning Qty = 30 Comments: Last Taken:11/17/17 Time:0900 Fenofibric Acid (Trilipix) 135 MG CAPSULE.DR 1 Capsule ORAL DAILY Qty = 30 Comments: Last Taken:11/17/17 Time:0900 Rosuvastatin Calcium (Crestor) 10 MG TABLET 1 Tablet ORAL DAILY Qty = 30 Comments: Last Taken:11/17/17 GIVEN AT LIPITOR Time:4:25 PM Amlodipine Besylate (Amlodipine Besylate) 10 MG TABLET 1 Tablet ORAL DAILY Qty = 30 Comments: Last Taken:11/17/17 Time:0900 Pregabalin (Lyrica) 150 MG CAPSULE 1 Capsule ORAL TWICE DAILY Comments: Last Taken:11/17/17 Time:0900 Hydrochlorothiazide (Hydrochlorothiazide) 25 MG TABLET 1 Tablet ORAL DAILY Comments: PER PT Losartan Potassium (Losartan Potassium) 100 MG TABLET 1 Tablet ORAL DAILY Comments: Last Taken:11/17/17 Time:0900 Insulin Aspart, Recombinant (Novolog Flexpen) 100 UNIT/ML INSULN.PEN Units Inject into fatty tissue TID AC Qty = 15 Comments: Last Taken:11/17/17 GIVEN NOVOLOG Time:4:49 PM Insulin Detemir (Levemir) 100 UNIT/ML VIAL 50 Units Inject into fatty tissue Every night Comments: Last Taken:11/17/17 Time:0900 Multivit/Iron/FA/K/Herb No.244 (Alive Women's Energy Mv Tablet) 18 MG IRON-400 MCG-80 MCG TABLET 1 Tablet ORAL DAILY Comments: PER PT Cinnamon Bark (Cinnamon) 500 MG CAPSULE 1 Capsule ORAL DAILY Melatonin (Melatonin) 5 MG TABLET 1 Tablet ORAL DAILY Comments: Last Taken:11/16/17 Time:1000PM Cranberry Extract (Cranberry) 425 MG CAPSULE 2 Capsule ORAL DAILY Ondansetron (Zofran Odt) 4 MG TAB.RAPDIS 1 Tablet SUBLINGUAL THREE TIMES DAILY as needed for nausea Qty = 10 Copies To: Dinah Stovall APRN
--- NOTE | 2017-11-17 17:17 | PN- Cardiology ---
Subjective Subjective: * No complaints of chest discomfort, shortness of breath, lightheadedness or palpitations. No abdominal discomfort. * Sinus rhythm * Normal cardiac enzymes Objective Vital Signs and I&Os Vital Signs Date Time Temp Pulse Resp B/P B/P Pulse O2 O2 Flow FiO2 Mean Ox Delivery Rate 11/17 1400 97.6 71 20 150/80 95 11/17 0838 118/64 11/17 0837 118/64 11/17 0701 98.1 60 18 112/58 97 Room Air 11/16 2304 98.0 70 18 140/60 98 Intake & Output 11/17 1600 11/17 0800 11/17 0000 11/16 1600 11/16 0800 11/16 0000 Intake Total 400 120 120 400 220 Output Total Balance 400 120 120 400 220 Intake, Oral 400 120 120 400 220 Patient 260 lb 250 lb 260 lb Weight Weight Chair scale Measurement Method Physical Exam: General: WD/obese female in NAD; alert and oriented x 3 HEENT: NC/AT, PERRL, EOMI Neck: no JVD, no carotid bruit Heart: RRR w/o murmur Lungs: clear bilaterally Abdomen: soft, obese, NT, +ve bowel sounds Extremities: no edema Assessment/Plan Assessment/Plan * This patient has multiple risk factors for coronary artery disease but her symptoms have resolved and her stress test is negative for ischemia. Her blood pressure is now improved. I suspect she had subendocardial ischemia from hypertension. Discharge patient on current medications with follow up in the office on one week. Continue telemetry? No
== END 2017-11-17 19:04 | DRG 198 ==
LOC: ERH 22:56 → ERHI 11-15 02:20 → 1NO 11-15 02:20 → ENPENDDIS 11-17 16:10 → ENTRNSPT 11-17 18:59 → 1NO 11-17 19:04 → EDTRNSPTSTS 11-17 19:24 → EDTRNSPT 11-17 19:24 → CMPTRNSPT 11-17 19:30
PROVIDERS: Emergency Medicine; Internal Medicine Endocrinology, Diabetes & Metabolism
PROC: 4A12XM4 Monitoring of Cardiac Stress, External Approach (ICD-10-PCS; principal; 2017-11-16)
PROC: 3E033HZ Introduction of Radioactive Substance into Peripheral Vein, Percutaneous Approach (ICD-10-PCS; 2017-11-16)
DX: I20.0 Unstable angina (principal); R55 Syncope and collapse; E11.40 Type 2 diabetes mellitus with diabetic neuropathy, unspecified; Z79.4 Long term (current) use of insulin; E66.9 Obesity, unspecified; E78.5 Hyperlipidemia, unspecified; I10 Essential (primary) hypertension; F32.9 Major depressive disorder, single episode, unspecified
CPT/HCPCS: 1NSP; 36415; 36592; 71045; 78452; 81001; 82436; 93005; 93010; 93016; 93017; 93306; A9502; J1245; J1644; J1815; J3490